=== PATIENT | male | born 1965 | race African-American/Black ===

== ENCOUNTER → 2017-03-02 | Outpatient (CLI) | payer OTHER ==
--- NOTE | 2017-03-02 11:08 | REP ---
MR LUMBAR SPINE WITHOUT AND WITH CONTRAST: HISTORY: Back pain. CONTRAST: ProHance 15 mL. Decreased signal intensity on T2-weighted images is present in the L3-4 and L4-5 intervertebral discs. The discs are decreased in height. These findings are consistent with disc degeneration. There is no disc bulge or herniation at the L1-2 and L2-3 levels. The nerves exit the neural foramina without compression. A diffuse disc bulge is present at the L3-4 level. There is minimal compression of the thecal sac. A small right intraforaminal disc protrusion is present. There is compression of the right L3 nerve in the neural foramen. The left L3 nerve exits the neural foramen without compression. A diffuse disc bulge and small central disc protrusion are present at the L4-5 level. There is hypertrophy of the ligamenta flava and posterior articulating facets. These findings produce mild central canal stenosis. The L4 nerves exit the neural foramina without compression. A diffuse disc bulge is present at the L5-S1 level. There is no thecal sac compression. There is hypertrophy of the posterior articulating facets. There is compression of the L5 nerves in the neural foramina. The conus medullaris is normal in appearance terminating at the level of the L2 vertebral body. Normal signal intensity is present in the lumbar vertebral bodies. IMPRESSION: 1. Diffuse disc bulge at the L3-4 level with minimal thecal sac compression. A small right intraforaminal disc protrusion is present. There is compression of the right L3 nerve in the neural foramen. 2. Mild central canal stenosis at the L4-5 level secondary to disc bulge, disc protrusion, ligamentous and facet hypertrophy. 3. Diffuse disc bulge at the L5-S1 level without thecal sac compression. There is compression of the L5 nerves in the neural foramina. Signed by Jm So MD 03/02/2017 11:36 A
== END ==
LOC: M RAD 08:25
PROVIDERS: ATTEND Family Medicine
DX: M54.5 Low back pain (principal)

== ENCOUNTER → 2018-01-08 | Outpatient (REF) | payer OTHER ==
[2018-01-11 00:06] LABS: HEMOGLOBIN A2 4.1 % (1.8-3.2); HEMOGLOBIN F (FETAL) 0.7 % (0.0-2.0); HEMOGLOBIN S 38.2 % (0.0); HGB SOLUBILITY Positive (Negative)
== END ==
LOC: M LAB REF 13:17
DX: D57.1 Sickle-cell disease without crisis (principal)

== ENCOUNTER 2019-11-10 04:37 | Emergency (ER) | payer OTHER ==
[~2019-11-10] VITALS: Ht 167.6 cm; Wt 87.8 kg
[2019-11-10 05:25] LABS: VENOUS BASE EXCESS -1.1 (-2.0-2.0); VENOUS HCO3 20.2 MEQ/L (23.0-27.0); VENOUS O2 SATURATION 99.6 % (60.0-80.0); VENOUS PARTIAL PRESSURE CO2 25.8 mmHg (38.0-50.0); VENOUS PARTIAL PRESSURE O2 194.4 mmHg (30.0-50.0); VENOUS PH 7.512 UNITS (7.330-7.430); VENOUS STANDARD HCO3 23.6 MEQ/L
[2019-11-10 05:30] LABS: BASO % 0.2 % (0.0-1.0); EOS % 0.2 % (0.0-3.0); HEMATOCRIT 40.1 % (42.0-52.0); HEMOGLOBIN 13.3 g/dl (13.5-17.5); LYMPH # 0.7 10^3/uL (1.5-5.0); LYMPH % 6.6 % (24.0-44.0); MEAN CORPUSCULAR HEMOGLOBIN 31.1 pg (27.0-33.0); MEAN CORPUSCULAR HGB CONC 33.2 g/dl (32.0-36.5); MEAN CORPUSCULAR VOLUME 93.9 fl (80.0-96.0); MONO # 0.5 10^3/uL (0.0-0.8); MONO % 4.7 % (0.0-5.0); NEUTROPHILS # 8.8 10^3/uL (1.5-8.5); NEUTROPHILS % 87.9 % (36.0-66.0); PLATELET COUNT, AUTOMATED 136 10^3/uL (150-450); RED BLOOD COUNT 4.27 10^6/uL (4.30-6.10)
[2019-11-10] MEDS ORDERED: NS 500 ML IV ONE ×2 (05:30→07:00)
[2019-11-10] MEDS ORDERED: ACETAMINOPHEN 500 MG TAB PO ONE (05:30)
[2019-11-10 06:05] LABS: ALBUMIN 3.7 GM/DL (3.2-5.2); ALT/SGPT 48 U/L (12-78); BILIRUBIN,DIRECT 0.3 MG/DL (0.0-0.2); BILIRUBIN,TOTAL 1.2 MG/DL (0.2-1.0); CK-MB VALUE MASS < 1.0 NG/ML (<3.6); CPK CREATINE PHOSPHOKINASE 339 U/L (39-308); MB/CK RELATIVE INDEX 0.29 (< OR =4); NT-PRO BNP 69 PG/ML (<125); THYROXINE (T4) 10.7 UG/DL (4.5-12.0); TOTAL PROTEIN 7.2 GM/DL (6.4-8.2); TROPONIN I < 0.02 NG/ML (< 0.10)
[2019-11-10 06:20] LABS: INFLUENZA A AMPLIFICATION NEGATIVE (NEGATIVE); INFLUENZA B AMPLIFICATION NEGATIVE (NEGATIVE)
[2019-11-10 06:58] LABS: APPEARANCE, URINE MANUAL HAZY (CLEAR); COLOR, URINE MANUAL ORANGE (YELLOW)
[2019-11-10 06:59] LABS: BILIRUBIN, URINE MANUAL 3+ (NEGATIVE); GLUCOSE, URINE (UA) MANUAL OBSCURED mg/dL (NEGATIVE); KETONE, URINE MANUAL OBSCURED mg/dL (NEGATIVE); PROTEIN, URINE MANUAL 3+ mg/dL (NEGATIVE)
[2019-11-10 07:00] LABS: BLOOD URINE MANUAL POSITIVE (NEGATIVE); LEUKOCYTE ESTERASE, URINE MAN POSITIVE (NEGATIVE); NITRITE, URINE MANUAL POSITIVE (NEGATIVE); UROBILINOGEN, URINE MANUAL 8 MG mg/dl (NORMAL)
[2019-11-10 07:10] LABS: BACTERIA, URINE SMALL AMOUNT; RBC, URINE 0-1 /hpf (0-3); SQUAMOUS EPITHELIAL CELL URINE NONE SEEN /hpf (SMALL AMT)
[2019-11-10 07:11] LABS: AMORPHOUS SEDIMENT, URINE SMALL AMOUNT (NEGATIVE)
--- NOTE | 2019-11-10 07:25 | REP ---
Normal chest, 05:15 a.m., single AP view with the the patient upright: There are no comparisons. The lung cantu are clear. The cardiac size is normal. The kem, mediastinum, and skeletal structures are unremarkable. Impression: Negative portable chest. Electronically Signed by Contreras Dang MD 11/10/2019 07:16 A
[2019-11-10 08:00] LABS: ERYTHROCYTE SEDIMENTATION RATE 28 mm/hr (0-20)
[2019-11-10] MEDS ORDERED: NS 1,000 ML IV ONE (08:00)
[2019-11-10 08:12] LABS: BLOOD UREA NITROGEN 17 MG/DL (7-18); C REACTIVE PROTEIN QUANTITATIV 7.81 MG/DL (0.00-0.30); CALCIUM LEVEL 8.8 MG/DL (8.5-10.1); CARBON DIOXIDE LEVEL 22 MEQ/L (21-32); CHLORIDE LEVEL 104 MEQ/L (98-107); CREATININE FOR GFR 1.87 MG/DL (0.70-1.30); GLOMERULAR FILTRATION RATE 49.2 (>56); GLUCOSE, FASTING 158 MG/DL (70-100); POTASSIUM SERUM 4.9 MEQ/L (3.5-5.1); SODIUM LEVEL 136 MEQ/L (136-145)
[2019-11-10 10:04] VITALS: BP 136/78
--- NOTE | 2019-11-10 12:35 | ECGEPIP ---
[facility] - ED Test Date: 2019-11-10 Pat Name: INES PERAZA Department: Room: - Gender: Male [employer] Mechanical Specialist: rachael : 1965 Requested By: BREANN ACSE Order Number: [id number] Reading MD: Randall Hopper Measurements Intervals [place] Rate: 87 P: 42 WV: 155 QRS: -20 QRSD: 73 T: 2 QT: 311 QTc: 376 Interpretive Statements SINUS RHYTHM NONSPECIFIC T-WAVE ABNORMALITY NO PRIORS FOR COMPARISON Electronically Signed on 11-10-2019 12:34:34 EST by Randall Hopper
[2019-11-11] MEDS ORDERED: TYLENOL (14:20)
[2019-11-11] MEDS ORDERED: QC A650T3 PO (18:17)
== END 2019-11-10 10:14 | disposition home or self-care (01) ==
LOC: M ED 04:37
DX: R50.9 Fever, unspecified (principal); N17.9 Acute kidney failure, unspecified; D57.3 Sickle-cell trait; G47.00 Insomnia, unspecified; F41.9 Anxiety disorder, unspecified; Z88.8 Allergy status to other drugs, medicaments and biological substances

== ENCOUNTER 2019-11-11 14:12 | Inpatient (IN) | payer OTHER ==
[~2019-11-11] VITALS: Ht 167.6 cm; Wt 90.0 kg
[2019-11-11] MEDS ORDERED: TYLENOL (14:20)
[2019-11-11] MEDS ORDERED: NS 1,000 ML IV ONE ×2 (15:30→18:00)
[2019-11-11] MEDS ORDERED: cefTRIAXone SOD 1 GM in D5W MINI-BAG PLUS 50 ML IV ONE (15:30)
[2019-11-11 15:50] LABS: BASO % 0.2 % (0.0-1.0); EOS % 0.1 % (0.0-3.0); HEMATOCRIT 36.7 % (42.0-52.0); HEMOGLOBIN 12.4 g/dl (13.5-17.5); LYMPH # 0.9 10^3/uL (1.5-5.0); LYMPH % 5.4 % (24.0-44.0); MEAN CORPUSCULAR HEMOGLOBIN 31.1 pg (27.0-33.0); MEAN CORPUSCULAR HGB CONC 33.8 g/dl (32.0-36.5); MONO # 1.9 10^3/uL (0.0-0.8); MONO % 11.1 % (0.0-5.0); NEUTROPHILS % 82.5 % (36.0-66.0); PLATELET COUNT, AUTOMATED 141 10^3/uL (150-450); RED BLOOD COUNT 3.99 10^6/uL (4.30-6.10); WHITE BLOOD COUNT 16.9 10^3/uL (4.0-10.0)
[2019-11-11 16:14] LABS: ERYTHROCYTE SEDIMENTATION RATE 60 mm/hr (0-20)
[2019-11-11 16:22] LABS: ALBUMIN 3.5 GM/DL (3.2-5.2); ALT/SGPT 42 U/L (12-78); AMYLASE 54 U/L (25-115); BILIRUBIN,DIRECT 0.9 MG/DL (0.0-0.2); BILIRUBIN,TOTAL 2.5 MG/DL (0.2-1.0); BLOOD UREA NITROGEN 17 MG/DL (7-18); CALCIUM LEVEL 9.2 MG/DL (8.5-10.1); CARBON DIOXIDE LEVEL 25 MEQ/L (21-32); CHLORIDE LEVEL 100 MEQ/L (98-107); GLOMERULAR FILTRATION RATE > 60.0 (>56); GLUCOSE, FASTING 186 MG/DL (70-100); LIPASE 98 U/L (73-393); POTASSIUM SERUM 3.6 MEQ/L (3.5-5.1); SODIUM LEVEL 133 MEQ/L (136-145); TOTAL PROTEIN 7.3 GM/DL (6.4-8.2)
[2019-11-11] MEDS ORDERED: VANCOMYCIN HCL 1,000 MG, VIAL MATE ADAPTER 1 EACH in D5W 250 ML IV ONE ×2 (18:00→19:30)
[2019-11-11] MEDS ORDERED: QC A650T3 PO (18:17)
[2019-11-11 18:44] VITALS: BP 178/96
--- NOTE | 2019-11-11 19:34 | HPEPDOC ---
[facility] Medical History & Physical Date of Admission Nov 11, 2019 Date of Service: Nov 11, 2019 Other Provider Feliberto Ramírez Attending Physician: ROCAEL LUNA MD History and Physical TIME OF SERVICE: 8 PM CHIEF COMPLAINT: Sent by PA HISTORY OF PRESENT ILLNESS: This is a 54-year-old male who was sent by his PA, for evaluation because he had gram-positive cocci in clusters growing in his blood cultures which were drawn here on November 10. He patient came to the ER and Sunday complaining of nonbloody emesis, dizziness, shaking, and had a fever of 101.7. He was offered inpatient admission, but he declined and [place]. Currently, he continues to feel weak and have fevers, which he was managing with ibuprofen at home, and chills. He denies having any cuts or skin lesions. REVIEW OF SYSTEMS: 12 point review of systems negative except as listed in HPI PAST MEDICAL/ SURGICAL HISTORY: Chronic back pain. He has had surgery in one of his fingers SOCIAL HISTORY: He does not smoke FAMILY HISTORY: He denies having any medical problems run in his family ALLERGIES: Please see below. HOME MEDICATIONS: Please see below. PHYSICAL EXAMINATION: VITAL SIGNS: Please see below. GEN: well-nourished / well developed/appears toxic HEENT: NCAT / lips acyanotic /mucus membranes dry INTEGUMENT: Ther are no cuts or abrasions on his face, neck, back, arms or feet. CVS: RRR/NMRG/ radial pulses intact / no lower extremity edema LUNGS: lungs are clear to auscultation bilaterally on room air ABDOMEN: soft & not tender with palpation MSK/EXTREMITIES: range of motion intact in all 4 extremities and back / no kyphosis NEURO: CN 2-12 are grossly intact / speech is not dysarthric PSYCH: alert and oriented to person place and time/ able to understand and follow all commands LABORATORY DATA: See below. IMAGING: Chest x-ray is unremarkable MICROBIOLOGY: Please see below. ASSESSMENT: Mr. Branham is a 54-year-old male with no past medical history admitted for evaluation of bacteremia. PLAN: 1. Sepsis secondary to Gram positive bacteremia SIRS criteria include Temp >101 on Nov 11 / WBC >12, RR > 20 He also has non diabetic hyperglycemia and a total bilirubin greater than 2, which are likely due to the infection Qsofa score = 1 = not high risk His lactic acid was 2 He received ceftriaxone and vancomycin in the ER Plan: admit to medical floor / telemetry / continue with the fluids and vancomycin / f/u repeat blood cx / Acetaminophen PRN for fever / target MAP 65 to 70 / f/u Is and Os with target UOP of atleast 0.5 ml/kg/H / target serum glucose 140-180 while acutely ill 2. Chronic back pain. - Plan: Lidocaine patches DVT PROPHYLAXIS: Lovenox DISPOSITION: home after more than 2 midnight's stay Vital Signs Vital Signs Date Time Temp Pulse Resp B/P (MAP) Pulse Ox O2 Delivery O2 Flow Rate FiO2 11/11/19 18:44 98.4 92 16 178/96 (123) 97 Room Air Laboratory Data Labs 24H Laboratory Tests 2 11/11/19 15:31: Immature Granulocyte % (Auto) 0.7, Neutrophils (%) (Auto) 82.5H, Lymphocytes (%) (Auto) 5.4L, Monocytes (%) (Auto) 11.1H, Eosinophils (%) (Auto) 0.1, Basophils (%) (Auto) 0.2, Neutrophils # (Auto) 14.0H, Lymphocytes # (Auto) 0.9L, Monocytes # (Auto) 1.9H, Eosinophils # (Auto) 0.0, Basophils # (Auto) 0.0, Nucleated Red Blood Cells % (auto) 0.0, Erythrocyte Sedimentation Rate 60H, Anion Gap 8, Glomerular Filtration Rate > 60.0, Lactic Acid Level 2.0, Calcium Level 9.2, Total Bilirubin 2.5#H, Direct Bilirubin 0.9H, Aspartate Amino Transf (AST/SGOT) 30, Alanine Aminotransferase (ALT/SGPT) 42, Alkaline Phosphatase 75, Total Protein 7.3, Albumin 3.5, Albumin/Globulin Ratio 0.92L, Amylase Level 54, Lipase 98 11/11/19 15:34: Urine Color STRAW, Urine Appearance CLEAR, Urine pH 6.0, Urine Specific [place] 1.001L, Urine Protein NEGATIVE, Urine Glucose (UA) 1+H, Urine Ketones NEGATIVE, Urine Blood NEGATIVE, Urine Nitrite NEGATIVE, Urine Bilirubin NEGATIVE, Urine Urobilinogen 4.0H, Urine Leukocyte Esterase NEGATIVE, Urine WBC (Auto) 0, Urine RBC (Auto) 0, Urine Hyaline Casts (Auto) 0, Urine Bacteria (Auto) NEGATIVE, Urine Squamous Epithelial Cells 0, Urine Sperm (Auto) CBC/BMP Laboratory Tests 11/11/19 15:31 Microbiology Microbiology 11/11/19 Blood Culture, Received Pending 11/11/19 Blood Culture, Received Pending Home Medications Scheduled PRN Acetaminophen (Acetaminophen 8 Hour) 650 Mg Tablet.er, 650 MG PO TID PRN for PAIN Allergies Coded Allergies: chloroquine (Verified Allergy, Intermediate, itching, 11/10/19) levofloxacin (Verified Allergy, Intermediate, ITCHING, 11/10/19) A-FIB/CHADSVASC A-FIB History Current/History of A-Fib/PAF?: No Current PO Anticoag Therapy: ROCAEL Dutta MD Nov 11, 2019 19:34
--- NOTE | 2019-11-11 20:22 | PHACANCOPD ---
PHARMACY VANCOMYCIN DOSING Pt Demographics Demographics Patient Age:54 , Weight:90.000 , Gender: male Adjusted Body Weight Date: 11/11/19, Adjusted Body Weight: Kg Events Past 24 Hours Events Past 24 Hours: NO: Dialysis, Diuretic Therapy, Change in CrCl, Fever, Elevation in WBC, Pending Diagnostics, Pending Procedures, Other Vancomycin Vancomycin indication: BACTEREMIA Vancomycin Target Ranges: 10-20 mcg/ml Vancomycin Load Y/N: Yes Load Dose Date Time Vancomycin Load Dose: 1750MG Date: 11/11/19 Time: 2000 Vancomycin Dose Date: 11/11/19. Current Vancomycin Dose: [1250MG Q12H] Intermittent Dosing?: No Labs Labs Vital Signs Label Value Date Time Patient Temperature 98.4 degrees F 11/11/19 1844 Temperature Source Oral 11/11/19 1844 Item Value Date Time White Blood Count 16.9 10^3/uL H 11/11/19 1531 Creatinine 1.50 MG/DL H 11/11/19 1531 Micro Microbiology 11/11/19 Blood Culture, Received Pending 11/11/19 Blood Culture, Received Pending Creatinine Clearance Date:11/11/19. Creatinine Clearance: [60.4ML/MIN]. Assessment and Plan Maintaining Current Dose?: Yes Reason for dose change: No Dose Change Pharmacist Note Pharmacist Note Date: 11/11/19. Pharmacist note: This is the first time we are following this patient on Vancomycin. The patient was admitted at 0300 on 11/10 and was discharged later that morning after being seen in the [facility] where he had bloodwork done. Preliminary blood work must have shown gram positive cocci so Vancomycin was started for suspected bacteremia. Patient is afebrile with an elevated WBC count of 16.9. SCr= 1.5 and CrCl=60.4 using adjusted body weight. This led to a Vanco load of 1750mg followed by a scheduled dose of 1250mg Q12H. Trough is currently scheduled to be drawn with AM lab draws on the morning of November 13. We will continue to monitor and dose adjust as necessary. MISAEL MARIN, PHARMACY Nov 11, 2019 20:22
[2019-11-11] MEDS: NS 1,000 ML IV SCH (20:28)
[2019-11-11] MEDS ORDERED: VANCOMYCIN HCL 750 MG, VIAL MATE ADAPTER 1 EACH in D5W 250 ML IV ONE (20:30)
[2019-11-11] MEDS: LIDOCAINE 5% (LIDODERM) PATCH TD SCH (20:52)
[2019-11-11] MEDS: **NOTE PATIENT COMMENT** MISC XX SCH (21:00)
[2019-11-11 22:00] VITALS: BP 152/81
[2019-11-12] MEDS ORDERED: VANCOMYCIN HCL 1,000 MG, VIAL MATE ADAPTER 1 EACH in D5W 250 ML IV SCH ×3
[2019-11-12] MEDS: NS 1,000 ML IV SCH ×2 (05:00→10:37)
[2019-11-12 06:00] VITALS: BP 148/84
[2019-11-12 07:09] LABS: BASO # 0.1 10^3/uL (0.0-0.2); BASO % 0.3 % (0.0-1.0); HEMATOCRIT 33.9 % (42.0-52.0); HEMOGLOBIN 11.6 g/dl (13.5-17.5); LYMPH # 1.3 10^3/uL (1.5-5.0); LYMPH % 7.7 % (24.0-44.0); MEAN CORPUSCULAR HEMOGLOBIN 31.4 pg (27.0-33.0); MEAN CORPUSCULAR HGB CONC 34.2 g/dl (32.0-36.5); MEAN CORPUSCULAR VOLUME 91.9 fl (80.0-96.0); MONO % 13.4 % (0.0-5.0); NEUTROPHILS # 13.3 10^3/uL (1.5-8.5); NEUTROPHILS % 77.4 % (36.0-66.0); PLATELET COUNT, AUTOMATED 134 10^3/uL (150-450); RED BLOOD COUNT 3.69 10^6/uL (4.30-6.10); WHITE BLOOD COUNT 17.1 10^3/uL (4.0-10.0)
[2019-11-12] MEDS: ACETAMINOPHEN 650MG ER TAB (TYLENOL ARTHRITIS) PO PRN ×2 (07:38→21:43)
[2019-11-12 07:44] LABS: ERYTHROCYTE SEDIMENTATION RATE 62 mm/hr (0-20)
[2019-11-12 07:48] LABS: ALT/SGPT 34 U/L (12-78); BILIRUBIN,DIRECT 0.6 MG/DL (0.0-0.2); BILIRUBIN,TOTAL 1.8 MG/DL (0.2-1.0); BLOOD UREA NITROGEN 12 MG/DL (7-18); CALCIUM LEVEL 8.3 MG/DL (8.5-10.1); CARBON DIOXIDE LEVEL 24 MEQ/L (21-32); CHLORIDE LEVEL 106 MEQ/L (98-107); GLOMERULAR FILTRATION RATE > 60.0 (>56); GLUCOSE, FASTING 133 MG/DL (70-100); MAGNESIUM LEVEL 1.9 MG/DL (1.8-2.4); POTASSIUM SERUM 3.6 MEQ/L (3.5-5.1); SODIUM LEVEL 138 MEQ/L (136-145); TOTAL PROTEIN 6.9 GM/DL (6.4-8.2)
[2019-11-12 07:54] LABS: MONO # 2.3 10^3/uL (0.0-0.8)
[2019-11-12] MEDS: ENOXAPARIN 40 MG/0.4 ML SYRINGE (J1650) SC SCH (09:29)
[2019-11-12] MEDS: VANCOMYCIN HCL 750 MG, VIAL MATE ADAPTER 1 EACH in D5W 250 ML IV SCH ×2 (09:30→20:35)
[2019-11-12] MEDS: LIDOCAINE 5% (LIDODERM) PATCH TD SCH (09:31)
--- NOTE | 2019-11-12 09:31 | REP ---
CT of the abdomen and pelvis without IV or bowel contrast: There are no comparisons. The visualized lung cantu are unremarkable. The unenhanced hepatic parenchyma, gallbladder, pancreas and spleen are unremarkable. The unenhanced adrenals, kidneys and abdominal aorta are unremarkable. There is no retroperitoneal adenopathy or mass. There is no bowel distension or obstruction. Mesentery is unremarkable. There is no ascites. Pelvis: The appendix is unremarkable. The bladder is unremarkable. There is no adenopathy or ascites. The pelvic bowel loops are unremarkable. Impression: Essentially negative CT of the abdomen and pelvis. Electronically Signed by Contreras Dang MD 11/12/2019 09:23 A
[2019-11-12] MEDS: VANCOMYCIN HCL 500 MG in D5W MINI-BAG PLUS 100 ML IV SCH ×2 (10:37→23:07)
[2019-11-12] MEDS ORDERED: traMADol 50 MG TAB PO PRN (10:45)
--- NOTE | 2019-11-12 11:07 | IPNPDOC ---
Text Note Date of Service The patient was seen on 11/12/19. NOTE Subjective: Patient 54-year-old male with a past medical history of chronic back pain who was presented to the ER because he was found to have gram-positive cocci in clusters from a blood culture drawn on 11/10/2019. Patient noted that over the Sunday morning he began to experience fevers, chills, excessive sweating and came to the emergency room for further jayson luation. Upon arrival, patient was found to have a fever of 101.7F, he received a septic workup including blood work cultures and urine analysis. At that time he had no leukocytosis and a mild lactic acidosis. Patient ultimately followed up with his primary care provider who had repeated lab work and found that he had significant leukocytosis and found that his blood work drawn on 11/10 was preliminary positive for gram-positive cocci in clusters. He was then advised to come to emergency room for further evaluation. Patient was seen and examined at the bedside. Currently patient denies any chest pain, shortness of breath, palpitations, abdominal pain and diarrhea. Objective: Vitals (See below) General: Lying in bed, no acute distress, comfortable, AAOx3 HEENT: NC, AT CVS: RRR, +S1S2 Lungs: Fair air entry b/l, no appreciable wheezing, rhonchi or rales Abdomen: Soft, no distention, no appreciable tenderness Extremities: - Edema, - Calf tenderness Assessment and plan: Fever / Leukocytosis - possibly 2/2 UTI, less likely 2/2 blood stream bacteremia - Currently patient remains asymptomatic - He did report a recent history of urinary discomfort about 1 week ago before his fever / chills on Sunday and has a history of UTIs - Patient had an episode of fever / chills / sweats on Sunday - Blood cultures 11/11: 1 of 2 positive Gram positive cocci in clusters - discussed with laboratory; growth is coagulase negative; suggesting contaminant - Repeat blood cultures 11/12: Pending - Urine cultures 11/10: E. Coli - CT abdomen / pelvis 11/12: Essentially negative CT of the abdomen and pelvis. - Will trend CRP - Patient was started on Vancomycin (Day #2) - will continue until blood cultures result - Will start Cefdinir for suspected UTI - given symptoms and recent UA / Urine culture findings Elevated bilirubin - Physical without any abdominal tenderness - Will check US abdomen s/p ARJUN - Cr on 11/10/19 was noted to be 1.87; continues to improve with IV fluid hydration Chronic back pain - c/w Lidocaine patches - Will start Tramadol DVT prophylaxis - c/w Lovenox VS,Fishbone, I+O VS, Fishbone, I+O Laboratory Tests 11/11/19 15:31 11/12/19 06:55 Vital Signs Date Time Temp Pulse Resp B/P (MAP) Pulse Ox O2 Delivery O2 Flow Rate FiO2 11/12/19 06:00 98.2 81 18 148/84 (105) 97 Room Air I&O- Last 24 Hours up to 6 AM 11/12/19 06:00 Intake Total 2195 ml Output Total 0 ml Balance 2195 ml ISHAAN SAENZ MD Nov 12, 2019 11:07
[2019-11-12] MEDS: CEFDINIR 300 MG CAP (OMNICEF) PO SCH ×2 (12:07→20:35)
[2019-11-12 14:00] VITALS: BP 140/78
--- NOTE | 2019-11-12 16:12 | REP ---
RIGHT UPPER QUADRANT ULTRASOUND: Real-time sonographic evaluation of the right upper quadrant performed. Gallbladder demonstrates no evidence of intraluminal sludge or calculi, wall thickening or pericholecystic fluid. There is no intrahepatic or extrahepatic biliary dilatation, common bile duct measuring 5 mm. The liver is homogeneous with no gross mass. Pancreas could not be visualized due to overlying bowel gas. Right kidney demonstrates no hydronephrosis with normal size 10 cm in length. There is trace ascites in the right upper quadrant. IMPRESSION: No gallstones, gallbladder wall thickening or biliary dilatation. Trace free fluid in the right upper quadrant. Electronically Signed by Contreras Palafox MD 11/12/2019 05:05 P
[2019-11-12] MEDS: **NOTE PATIENT COMMENT** MISC XX SCH (20:35)
[2019-11-12 22:00] VITALS: BP 139/82
[2019-11-13 06:00] VITALS: BP 130/80
[2019-11-13 06:17] LABS: BASO % 0.3 % (0.0-1.0); EOS % 0.2 % (0.0-3.0); HEMATOCRIT 35.8 % (42.0-52.0); LYMPH # 1.6 10^3/uL (1.5-5.0); LYMPH % 11.2 % (24.0-44.0); MEAN CORPUSCULAR HEMOGLOBIN 31.3 pg (27.0-33.0); MEAN CORPUSCULAR HGB CONC 33.5 g/dl (32.0-36.5); MEAN CORPUSCULAR VOLUME 93.2 fl (80.0-96.0); MONO # 1.3 10^3/uL (0.0-0.8); NEUTROPHILS # 10.8 10^3/uL (1.5-8.5); NEUTROPHILS % 77.6 % (36.0-66.0); PLATELET COUNT, AUTOMATED 134 10^3/uL (150-450); RED BLOOD COUNT 3.84 10^6/uL (4.30-6.10); WHITE BLOOD COUNT 13.9 10^3/uL (4.0-10.0)
[2019-11-13 06:37] LABS: BLOOD UREA NITROGEN 12 MG/DL (7-18); CALCIUM LEVEL 8.9 MG/DL (8.5-10.1); CARBON DIOXIDE LEVEL 27 MEQ/L (21-32); CHLORIDE LEVEL 109 MEQ/L (98-107); CREATININE FOR GFR 1.11 MG/DL (0.70-1.30); GLOMERULAR FILTRATION RATE > 60.0 (>56); GLUCOSE, FASTING 94 MG/DL (70-100); MAGNESIUM LEVEL 2.1 MG/DL (1.8-2.4); POTASSIUM SERUM 3.8 MEQ/L (3.5-5.1); SODIUM LEVEL 140 MEQ/L (136-145)
--- NOTE | 2019-11-13 07:22 | PHACANCOPD ---
PHARMACY VANCOMYCIN DOSING Pt Demographics Demographics Patient Age:54 , Weight:90.000 , Gender: male Adjusted Body Weight Date: 11/11/19, Adjusted Body Weight: Kg Events Past 24 Hours Events Past 24 Hours: NO: Dialysis, Diuretic Therapy, Change in CrCl, Fever, Elevation in WBC, Pending Diagnostics, Pending Procedures, Other Vancomycin Vancomycin indication: BACTEREMIA Vancomycin Target Ranges: 10-20 mcg/ml Vancomycin Load Y/N: Yes Load Dose Date Time Vancomycin Load Dose: 1750MG Date: 11/11/19 Time: 2000 Vancomycin Dose Date: 11/13/19. Current Vancomycin Dose: [1G IV Q8H] Date: 11/11/19. Current Vancomycin Dose: [1250MG Q12H] Intermittent Dosing?: No Labs Labs Item Value Date Time White Blood Count 16.9 10^3/uL H 11/11/19 1531 White Blood Count 17.1 10^3/uL H 11/12/19 0655 White Blood Count 13.9 10^3/uL H 11/13/19 0603 Creatinine 1.50 MG/DL H 11/11/19 1531 Creatinine 1.30 MG/DL 11/12/19 0655 Creatinine 1.11 MG/DL 11/13/19 0603 Blood Urea Nitrogen 17 MG/DL 11/11/19 1531 Blood Urea Nitrogen 12 MG/DL 11/12/19 0655 Blood Urea Nitrogen 12 MG/DL 11/13/19 0603 Vancomycin Level Trough 11.9 UG/ML 11/13/19 0603 Micro Microbiology 11/12/19 Blood Culture, Received Pending 11/12/19 Blood Culture - Preliminary, Resulted No growth after 24 hours . All specim... 11/12/19 Respiratory Virus Panel (PCR) (VANGIE) - Final, Complete 11/11/19 Blood Culture - Preliminary, Resulted No growth after 24 hours . All specim... 11/11/19 Blood Culture - Preliminary, Resulted No growth after 24 hours . All specim... Creatinine Clearance Date:11/13/19. Creatinine Clearance: [81ML/MIN]. Date:11/11/19. Creatinine Clearance: [60.4ML/MIN]. Assessment and Plan Maintaining Current Dose?: No Reason for dose change: No Dose Change Pharmacist Note Pharmacist Note Date: 11/13/19. Pharmacist note: Pt vancomycin level came back this am at 11.9mcg/ml @ 0600. Scr has improved to 1.11mg/dl with an increase in CrCl to ~81ml/min. The dosing will change to 1g IV every 8 hours starting @08:00. A trough is scheduled for 11/14/19 @07:00. We will continue to monitor and adjust the dose as needed. Date: 11/11/19. Pharmacist note: This is the first time we are following this patient on Vancomycin. The patient was admitted at 0300 on 11/10 and was discharged later that morning after being seen in the [facility] where he had bloodwork done. Preliminary blood work must have shown gram positive cocci so Vancomycin was started for suspected bacteremia. Patient is afebrile with an elevated WBC count of 16.9. SCr= 1.5 and CrCl=60.4 using adjusted body weight. This led to a Vanco load of 1750mg followed by a scheduled dose of 1250mg Q12H. Trough is currently scheduled to be drawn with AM lab draws on the morning of November 13. We will continue to monitor and dose adjust as necessary. ERASMO OGLESBY PHARMACY Nov 13, 2019 07:22
[2019-11-13] MEDS ORDERED: VANCOMYCIN HCL 1,000 MG, VIAL MATE ADAPTER 1 EACH in D5W 250 ML IV SCH (08:00)
[2019-11-13] MEDS: CEFDINIR 300 MG CAP (OMNICEF) PO SCH (08:40)
[2019-11-13] MEDS: LIDOCAINE 5% (LIDODERM) PATCH TD SCH (08:40)
[2019-11-13] MEDS: ENOXAPARIN 40 MG/0.4 ML SYRINGE (J1650) SC SCH (08:40)
[2019-11-13] MEDS ORDERED: BACT800T5 PO (13:10)
--- NOTE | 2019-11-13 16:52 | DS.PDOC ---
Discharge Summary General Date of Admission Nov 11, 2019 at 17:56 Date of Discharge 11/13/19 Discharge Summary PROCEDURES PERFORMED DURING STAY: [None]. ADMITTING DIAGNOSES: Fever / Leukocytosis UTI Elevated bilirubin ARJUN Chronic back pain DISCHARGE DIAGNOSES: Fever / Leukocytosis UTI Elevated bilirubin ARJUN Chronic back pain COMPLICATIONS/CHIEF COMPLAINT: Bacteremia D/T Gram-Positive Bacteria. HISTORY OF PRESENT ILLNESS: Patient 54-year-old male with a past medical history of chronic back pain who was presented to the ER because he was found to have gram-positive cocci in clusters from a blood culture drawn on 11/10/2019. Patient noted that over the Sunday morning he began to experience fevers, chills, excessive sweating and came to the emergency room for further evaluation. Upon arrival, patient was found to have a fever of 101.7F, he received a septic workup including blood work cultures and urine analysis. At that time he had no leukocytosis and a mild lactic acidosis. Patient ultimately followed up with his primary care provider who had repeated lab work and found that he had significant leukocytosis and found that his blood work drawn on 11/10 was preliminary positive for gram-positive cocci in clusters. He was then advised to come to emergency room for further evaluation. HOSPITAL COURSE: During hospital stay following issue addressed Fever / Leukocytosis - possibly 2/2 UTI, less likely 2/2 blood stream bacteremia - He did report a recent history of urinary discomfort about 1 week ago before his fever / chills on Sunday and has a history of UTIs - Patient had an episode of fever / chills / sweats on Sunday - Blood cultures 11/11: 1 of 2 positive Gram positive cocci in clusters - discussed with laboratory; growth is coagulase negative; suggesting contaminant - Repeat blood cultures 11/12: Negative - Urine cultures 2/3: ESBL - CT abdomen / pelvis 11/12: Essentially negative CT of the abdomen and pelvis. - Patient received Vancomycin (Day #2) -discontinued after negative repeated blood culture - Will start Bactrim for suspected UTI - given symptoms and recent UA / Urine culture findings Elevated bilirubin - Physical without any abdominal tenderness s/p ARJUN - Cr on 11/10/19 was noted to be 1.87; continues to improve with IV fluid hydration DISCHARGE MEDICATIONS: Please see below. ALLERGIES: Please see below. PHYSICAL EXAMINATION ON DISCHARGE: VITAL SIGNS: Please see below. GEN: well-nourished / well developed/appears toxic HEENT: NCAT / lips acyanotic /mucus membranes dry INTEGUMENT: Ther are no cuts or abrasions on his face, neck, back, arms or feet. CVS: RRR/NMRG/ radial pulses intact / no lower extremity edema LUNGS: lungs are clear to auscultation bilaterally on room air ABDOMEN: soft & not tender with palpation MSK/EXTREMITIES: range of motion intact in all 4 extremities and back / no kyphosis NEURO: CN 2-12 are grossly intact / speech is not dysarthric PSYCH: alert and oriented to person place and time/ able to understand and follow all commands LABORATORY DATA: Please see below. IMAGING: CT of the abdomen and pelvis without IV or bowel contrast: There are no comparisons. The visualized lung cantu are unremarkable. The unenhanced hepatic parenchyma, gallbladder, pancreas and spleen are unremarkable. The unenhanced adrenals, kidneys and abdominal aorta are unremarkable. There is no retroperitoneal adenopathy or mass. There is no bowel distension or obstruction. Mesentery is unremarkable. There is no ascites. Pelvis: The appendix is unremarkable. The bladder is unremarkable. There is no adenopathy or ascites. The pelvic bowel loops are unremarkable. Impression: Essentially negative CT of the abdomen and pelvis. PROGNOSIS: Favorable ACTIVITY: [As tolerated]. DIET: Regular DISCHARGE PLAN: Home DISPOSITION: 01 Home, Self-Care. DISCHARGE INSTRUCTIONS: Take prescribed medication ITEMS TO FOLLOWUP ON ON OUTPATIENT: Follow-up with PCP DISCHARGE CONDITION: Stable TIME SPENT ON DISCHARGE: Greater than 20 minutes. Vital Signs/I&Os Vital Signs Date Time Temp Pulse Resp B/P (MAP) Pulse Ox O2 Delivery O2 Flow Rate FiO2 11/13/19 06:00 98.1 63 19 130/80 (97) 97 11/12/19 22:00 Room Air I&O- Last 24 Hours up to 6 AM 11/13/19 06:00 Intake Total 2456 ml Output Total 2500 ml Balance -44 ml Laboratory Data Labs 24H Laboratory Tests 2 11/13/19 06:03: Immature Granulocyte % (Auto) 1.7, Neutrophils (%) (Auto) 77.6H, Lymphocytes (%) (Auto) 11.2L, Monocytes (%) (Auto) 9.0H, Eosinophils (%) (Auto) 0.2, Basophils (%) (Auto) 0.3, Neutrophils # (Auto) 10.8H, Lymphocytes # (Auto) 1.6, Monocytes # (Auto) 1.3H, Eosinophils # (Auto) 0.0, Basophils # (Auto) 0.0, Nucleated Red Blood Cells % (auto) 0.0, Anion Gap 4L, Glomerular Filtration Rate > 60.0, Calcium Level 8.9, Magnesium Level 2.1, Vancomycin Level Trough 11.9 CBC/BMP Laboratory Tests 11/13/19 06:03 Microbiology Microbiology 11/12/19 Blood Culture - Preliminary, Resulted No growth after 24 hours . All specim... 11/12/19 Blood Culture - Preliminary, Resulted No growth after 24 hours . All specim... 11/12/19 Respiratory Virus Panel (PCR) ([facility]IE) - Final, Complete 11/11/19 Blood Culture - Preliminary, Resulted No Growth after 48 hours. All Specime... 11/11/19 Blood Culture - Preliminary, Resulted No Growth after 48 hours. All Specime... Discharge Medications Scheduled Sulfamethoxazole/Trimethoprim (Bactrim Ds Tablet) 1 Each Tablet, 1 TAB PO BID Scheduled PRN Acetaminophen (Acetaminophen 8 Hour) 650 Mg Tablet.er, 650 MG PO TID PRN for PAIN, (Reported) Allergies Coded Allergies: chloroquine (Verified Allergy, Intermediate, itching, 11/10/19) levofloxacin (Verified Allergy, Intermediate, ITCHING, 11/10/19) MEL BECERRA DO Nov 13, 2019 16:52
== END 2019-11-13 13:38 | disposition home or self-care (01) | DRG 690 ==
LOC: M ED 14:12 → M ED INP 17:56 → ENRESERV 18:10 → M MSPAV 18:59
PROVIDERS: ADMIT Internal Medicine; ATTEND Internal Medicine
DX: N39.0 Urinary tract infection, site not specified (principal); N17.9 Acute kidney failure, unspecified; R17 Unspecified jaundice; E87.2 Acidosis; D72.829 Elevated white blood cell count, unspecified; R50.9 Fever, unspecified; R73.9 Hyperglycemia, unspecified; M54.9 Dorsalgia, unspecified; Z88.1 Allergy status to other antibiotic agents; Z88.8 Allergy status to other drugs, medicaments and biological substances